=== PATIENT | female | born 1985 | race Caucasian/White ===

== ENCOUNTER 2017-04-10 22:44 | Emergency (ER) | payer MEDICAID ==
[2017-04-11 02:13] VITALS: BP 135/69
== END 2017-04-11 02:15 | disposition home or self-care (01) ==
LOC: ED 22:44
DX: R05 Cough (principal); J34.89 Other specified disorders of nose and nasal sinuses; R11.10 Vomiting, unspecified
CPT/HCPCS: J7613; J7644

== ENCOUNTER 2017-11-08 00:24 | Emergency (ER) | payer MEDICAID ==
[~2017-11-08] VITALS: Ht 157.5 cm; Wt 97.5 kg
[2017-11-08 00:42] VITALS: Ht 157.5 cm; Wt 97.5 kg
[2017-11-08 02:12] VITALS: BP 145/94
== END 2017-11-08 02:12 | disposition home or self-care (01) ==
LOC: ED 00:24
DX: J02.9 Acute pharyngitis, unspecified (principal); H92.03 Otalgia, bilateral; R05 Cough

== ENCOUNTER 2019-07-20 03:52 | Emergency (ER) | payer MEDICAID ==
[~2019-07-20] VITALS: Ht 160 cm; Wt 97.2 kg
[2019-07-20 03:56] VITALS: Ht 160 cm; Wt 97.2 kg
[2019-07-20 08:00] VITALS: BP 122/76
== END 2019-07-20 08:05 | disposition home or self-care (01) ==
LOC: ED 03:52
DX: K08.89 Other specified disorders of teeth and supporting structures (principal)

== ENCOUNTER 2019-08-21 11:18 | Emergency (ER) | payer MEDICAID ==
[~2019-08-21] VITALS: Ht 154.9 cm; Wt 96.6 kg
[2019-08-21 11:25] VITALS: Ht 154.9 cm; Wt 96.6 kg
[2019-08-21 15:46] VITALS: BP 132/62
== END 2019-08-21 15:30 | disposition home or self-care (01) ==
LOC: ED 11:18
DX: N76.0 Acute vaginitis (principal); Z98.51 Tubal ligation status; Z98.890 Other specified postprocedural states
CPT/HCPCS: 87491; 87591